=== PATIENT | male | born 1985 ===

== ENCOUNTER 2018-03-07 01:39 | Emergency (ER) | payer SELFPAY ==
[2018-03-07 01:45] VITALS: RESP 18
[2018-03-07] MEDS ORDERED: Tdap Vaccine 0.5 ml Vial (10-64 yrs) IM ONE (02:18)
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
[2018-03-07] MEDS ORDERED: Tetanus/Diphtheria Toxoids 0.5 ml Syringe IM ONE (02:28)
[2018-03-07 02:40] VITALS: BP 116/73; PULSE 101; TEMP 98
[2018-03-08 01:09] VITALS: O2SAT 98
== END 2018-03-07 03:08 | disposition home or self-care (01) ==
LOC: C.ER 01:39
DX: S00.81XA Abrasion of other part of head, initial encounter (principal); Y08.89XA Assault by other specified means, initial encounter; Y92.9 Unspecified place or not applicable; Z23 Encounter for immunization